=== PATIENT | male | born 1975 | race Caucasian/White ===

== ENCOUNTER 2024-03-18 04:24 | Day surgery (SDC) | payer OTHER ==
[2024-03-11 15:56] VITALS: BMI 35.9
[2024-03-18 08:46] VITALS: TEMP 98.2
[2024-03-18 09:05] VITALS: BP 124/74; PULSE 84; RESP 18
== END 2024-03-18 09:09 | disposition home or self-care (01) ==
LOC: JASU-ENDO 04:24
PROVIDERS: ATTEND Student in an Organized Health Care Education/Training Program
PROC: 0DBN8ZX Excision of Sigmoid Colon, Via Natural or Artificial Opening Endoscopic, Diagnostic (ICD-10-PCS; principal; 2024-03-18 08:30)
DX: Z12.11 Encounter for screening for malignant neoplasm of colon (principal); K63.5 Polyp of colon; I10 Essential (primary) hypertension
CPT/HCPCS: 82962; 88305-TC